=== PATIENT | male | born 1965 | race Caucasian/White ===

== ENCOUNTER 2017-09-05 08:26 | Emergency (ER) | payer BC | END 2017-09-05 09:10 | disposition left against medical advice (07) | LOC: UCCORT 08:26 | DX: M54.9 Dorsalgia, unspecified (principal); Z53.21 Procedure and treatment not carried out due to patient leaving prior to being seen by health care provider ==

== ENCOUNTER 2017-09-06 11:53 | Emergency (ER) | payer BC ==
[2017-09-06 14:16] VITALS: BP 175/113
--- NOTE | 2017-09-06 14:40 | UC ---
Shoulder Pain HPI - HPI Summary HPI Summary: 52 year old male with shoulder pain . He hurt back 6 weeks ago and has chronic back pain and he saw some chiro in the 80s. Patient fell down stairs 2 weeks ago. denies LOC. He sleeps on his stomach and noticed a few days ago he turned and felt pain. Now he has had some spasms. Took ibuprofen and aleve PM yesterday . Declined meds at this time. Denies work injury. Fall at home. No numbness in legs. Low back pain and worsened on the low right and left shoulder . pain . No weakness in the arms or legs. no incontinence. No leg drop. No urinary concerns. No PCP - History of Current Complaint Chief Complaint: UCBackPain Stated Complaint: BACK/LEFT SHLDR PAIN Time Seen by Provider: 09/06/17 14:33 Hx Obtained From: Patient Onset/Duration: Sudden Onset Timing: Intermittent Episode Lasting Pain Intensity: 9 Character: Aching, Stiffness Aggravating Factor(s): Movement, Lifting Alleviating Factor(s): Rest - Allergies/Home Medications Allergies/Adverse Reactions: Allergies Allergy/AdvReac Type Severity Reaction Status Date / Time MS Amikacin [Amikacin] Allergy Intermediate Rash Verified 09/06/17 14:04 MS Fluconazole [Fluconazole] Allergy Intermediate Rash Verified 09/06/17 14:04 MS Levofloxacin Allergy Intermediate Rash Verified 09/06/17 14:04 [From Levaquin] Home Medications: Home Medications Naproxen Sod/Diphenhydramine [Aleve PM 220-25 mg] 2 tab PO BEDTIME PRN 09/06/17 [History Confirmed 09/06/17] PMH/Surg Hx/FS Hx/Imm Hx Previously Healthy: Yes - Surgical History Surgical History: Yes Surgery Procedure, Year, and Place: bone marrow bx's - Family History Known Family History: Positive: Cardiac Disease, Hypertension Negative: Respiratory Disease - Social History Occupation: Employed Full-time - state Alcohol Use: Weekly Alcohol Amount: few times a week Substance Use Type: None Smoking Status (MU): Heavy Every Day Tobacco Smoker Type: Cigarettes Amount Used/How Often: 1/2-3/4 ppd Length of Time of Smoking/Using Tobacco: 37 YRS Household Exposure Type: Cigarettes - Immunization History Most Recent Influenza Vaccination: 8001-2650 Most Recent Tetanus Shot: WITHIN THE LAST 5 YRS Review of Systems Musculoskeletal: Arthralgia, Decreased ROM - left shoulder and low back Is Patient Immunocompromised?: No All Other Systems Reviewed And Are Negative: Yes Physical Exam Triage Information Reviewed: Yes Appearance: Well-Appearing, Well-Nourished, Pain Distress - mild Vital Signs: Initial Vital Signs Temp 98.7 F 09/06/17 14:07 Pulse 76 09/06/17 14:07 Resp 16 09/06/17 14:07 BP 175/113 09/06/17 14:07 Pulse Ox 97 09/06/17 14:07 Vital Signs Reviewed: Yes Eye Exam: Normal ENT Exam: Normal Respiratory Exam: Normal Cardiovascular Exam: Normal Musculoskeletal: Positive: No Edema, Strength Limited @ - left shoulder reduced ROM with forward flexion after 90 deg. lateral flexion to 80 degrees. (+) Neers and Lift off. Low back with paraspinal tenderness diffusely L3-5. No SP tenderness. No step off. No C spine tenderness., Other: - neg SLR. LE strength 5 /5 B/L. Psychological Exam: Normal Skin Exam: Normal Diagnostics - Laboratory Diagnostic Studies Completed/Ordered: IMPRESSION: 1. Negative for fracture or spondylolisthesis. 2. Degenerative spondylosis and facet joint osteoarthritis. Shoulder : no acute concerns Shoulder Course/Dx - Course Course Of Treatment: With sub acute back pain and acute shoulder pain obtained Xray. No red flags on exam. Advised NSAIDs, muscle relaxer prn (do not work or drive if taking) and start PT. If not improved he will follow up with Ortho. His BP very elevated -- advise to f/u with PCP juana for further eval and treatment. The BP could be high due to UC setting and pain. He still needs additional work up . Reviewed x ray with pt -- at this time star [facility] , NSAIDs, prn muscle relaxer and f/u Ortho. No red flags. RTO if any concerns. - Differential Dx/Diagnosis Differential Diagnosis/HQI/PQRI: AC Separation, Arthritis, Fracture (Closed), Rotator Cuff Injury, Sprain, Strain Provider Diagnoses: Left shoulder and low back pain Discharge - Discharge Plan Condition: Good Disposition: HOME Prescriptions: Cyclobenzaprine TAB* [Flexeril 10 MG TAB*] 10 mg PO BID PRN #14 tab PRN Reason: Spasms Patient Education Materials: Rotator Cuff Injury (ED), Low Back Strain (ED), Hypertension (ED) Referrals: Shahzad Cook MD [Medical Doctor] - 1 Week (Ortho referral ) No Primary Care Phys,NOPCP [Primary Care Provider] - 4 Days (Establish care with Primary care doctor to look at your Blood pressure ) Additional Instructions: Please do not take ibuprofen and naproxen (aleve) at the same time and preferably not in the same day. Do not work or drive while on the flexeril or any muscle relaxer
--- NOTE | 2017-09-06 15:24 | RAD ---
HISTORY: Left shoulder pain COMPARISONS: None VIEWS: 3, Frontal internal rotation, external rotation, and outlet views of the left shoulder FINDINGS: BONE DENSITY: Normal. BONES: There is no displaced fracture. JOINTS: There is moderate osteoarthritis of the left AC and glenohumeral joints. ALIGNMENT: There is no dislocation. SOFT TISSUES: Unremarkable. OTHER FINDINGS: None. IMPRESSION: OSTEOARTHRITIS. NO ACUTE OSSEOUS INJURY. IF SYMPTOMS PERSIST, RECOMMEND REPEAT IMAGING.
--- NOTE | 2017-09-06 15:45 | RAD ---
Indication: Bilateral low back pain. Fall 2 months ago. Comparison: No relevant prior exams available on the [facility] PACS for comparison. Technique: Upright AP, lateral, and oblique views lumbar sacral spine. Report: Transitional segment at the lumbar sacral junction with lumbarization of S1. Alignment is anatomic. No cortical disruption or trabecular impaction to indicate a vertebral body fracture. Oblique views without evidence for spondylolysis. Multilevel predominant mild vertebral and endplate osteophytosis with more prominent RIGHT lateral osteophytes at the L1-L2 level. . Diffuse mild to moderate disc space narrowing with sparing of the L4-L5 level. Mild facet joint osteoarthritis throughout. Unremarkable soft tissue contours. Atherosclerotic calcification of the abdominal aorta. IMPRESSION: 1. Negative for fracture or spondylolisthesis. 2. Degenerative spondylosis and facet joint osteoarthritis.
== END 2017-09-06 15:48 | disposition home or self-care (01) ==
LOC: UCCORT 11:53
DX: M25.512 Pain in left shoulder (principal); M54.5 Low back pain
CPT/HCPCS: 72110; 99212; G0463

== ENCOUNTER 2017-11-26 09:48 | Emergency (ER) | payer BC ==
[2017-11-26 10:29] VITALS: BP 184/108
--- NOTE | 2017-11-26 10:55 | UC ---
Skin Complaint HPI - HPI Summary HPI Summary: pt noted a black spot in his belly button-thinks it may be a tick because it itches. no fever or rash. also, BP elevated at triage, denies hx htn. no GALEANA, cp , sob. - History of Current Complaint Chief Complaint: UCSkin Time Seen by Provider: 11/26/17 10:48 Stated Complaint: SKIN COMPLAINT Hx Obtained From: Patient Pain Intensity: 0 Aggravating Factor(s): Nothing Alleviating Factor(s): Nothing Associated Signs & Symptoms: Negative: Chest Pain - Allergy/Home Medications Allergies/Adverse Reactions: Allergies Allergy/AdvReac Type Severity Reaction Status Date / Time amikacin Allergy Rash Verified 11/26/17 10:20 fluconazole Allergy Rash Verified 11/26/17 10:20 levofloxacin Allergy Rash Verified 11/26/17 10:20 Review of Systems Constitutional: Negative Skin: Other - ? tick belly button Eyes: Negative ENT: Negative Respiratory: Negative Cardiovascular: Negative Gastrointestinal: Negative Genitourinary: Negative Motor: Negative Neurovascular: Negative Musculoskeletal: Negative Neurological: Negative Psychological: Negative Is Patient Immunocompromised?: No All Other Systems Reviewed And Are Negative: Yes PMH/Surg Hx/FS Hx/Imm Hx - Additional Past Medical History Additional PMH: leukemia - remission over 5 years - Surgical History Surgical History: Yes Surgery Procedure, Year, and Place: bone marrow bx's - Family History Known Family History: Positive: Cardiac Disease, Hypertension, Renal Disease Negative: Respiratory Disease - Social History Occupation: Employed Full-time Lives: With Family Alcohol Use: Weekly Alcohol Amount: few times a week Substance Use Type: None Smoking Status (MU): Heavy Every Day Tobacco Smoker Type: Cigarettes Amount Used/How Often: 1/2-3/4 ppd Length of Time of Smoking/Using Tobacco: 37 YRS Household Exposure Type: Cigarettes - Immunization History Most Recent Influenza Vaccination: 2106-7504 Most Recent Tetanus Shot: WITHIN THE LAST 5 YRS Vaccination Up to Date: Yes Physical Exam Triage Information Reviewed: Yes Appearance: Well-Appearing Vital Signs: Initial Vital Signs Temp 99.0 F 11/26/17 10:19 Pulse 53 11/26/17 10:19 Resp 19 11/26/17 10:19 BP 184/108 11/26/17 10:19 Pulse Ox 99 11/26/17 10:19 Vital Signs Reviewed: Yes Eyes: Positive: Conjunctiva Clear ENT: Positive: Normal ENT inspection Neck: Positive: Supple, Nontender, No Lymphadenopathy Respiratory: Positive: Lungs clear, Normal breath sounds Cardiovascular: Positive: RRR, No Murmur Abdomen Description: Positive: Nontender, No Organomegaly, Soft Bowel Sounds: Positive: Present Musculoskeletal: Positive: ROM Intact Neurological: Positive: Alert Psychological: Positive: Age Appropriate Behavior Skin Exam: Normal, Other - umbilical tick Course/Dx - Course Course Of Treatment: Procedure=tick removed with twister whole. site cleaned and bacitracin applied. repeat BP 190/90. no s/s's. no hypertensive emergency. called [facility] where pt trying to get a pcp. gave pt info. awaiting to see if they will accept the pt. attempted to speak with Oliva colón whom he request; however, after several minutes of waiting no call back. BP d/w Dr Rivera. since no baseline labs, he suggest pt go to ER. pt declined ER transfer. states will leave here and go to [facility], [facility] Ramirez to get a pcp. need for f/u stresses due to htn. pt agrees to go to er for any changes such as cp, sob, galeana. states last saw oncology about 3 years ago since in remission. i advised he should f/u with them as well. - Diagnoses Provider Diagnoses: Tick removed- umbilical. hypertension Discharge - Sign-Out/Discharge Documenting (check all that apply): Discharge/Admit/Transfer - Discharge Plan Condition: Stable Disposition: HOME Prescriptions: DOXYcycline CAP(*) [DOXYcycline 100MG CAP(*)] 200 mg PO DAILY #2 cap Patient Education Materials: Tick Bite (ED), Hypertension (ED) Referrals: Suman Jansen DO [Doctor of Osteopathy] - As Soon As Possible Additional Instructions: FOLLOW UP WITH [facility] UPON LEAVING HERE. YOU MAY ASK FOR WHOM EVER YOU PREFER([facility]) - Billing Disposition and Condition Condition: STABLE Disposition: HOME
== END 2017-11-26 11:58 | disposition home or self-care (01) ==
LOC: UCCORT 09:48
DX: S30.861A Insect bite (nonvenomous) of abdominal wall, initial encounter (principal); W57.XXXA Bitten or stung by nonvenomous insect and other nonvenomous arthropods, initial encounter; Y93.9 Activity, unspecified; Y92.9 Unspecified place or not applicable; I10 Essential (primary) hypertension; Z88.1 Allergy status to other antibiotic agents; Z88.8 Allergy status to other drugs, medicaments and biological substances; F17.210 Nicotine dependence, cigarettes, uncomplicated
CPT/HCPCS: 99211; G0463

== ENCOUNTER 2018-07-10 17:52 | Emergency (ER) | payer BC ==
[2018-07-10 18:04] VITALS: BP 186/120
--- NOTE | 2018-07-10 18:10 | UC ---
Eye Complaint HPI - HPI Summary HPI Summary: Pt c/o sudden onset bilateral eye redness, mild swelling and yellow discharge x 2 days. - History of Current Complaint Chief Complaint: UCEye Stated Complaint: B/L EYE COMPLAINT Time Seen by Provider: 07/10/18 18:06 Hx Obtained From: Patient Onset/Duration: Sudden Onset, Lasting Days, Still Present Timing: Constant Severity Initially: Mild Severity Currently: Mild Pain Intensity: 4 Character: Dull, Foreign Body Sensation Associated Signs And Symptoms: Positive: Drainage (Purulent) - Risk Factors Penetrating Injury Risk Factor: Negative Globe Rupture Risk Factors: Negative Acute Glaucoma Risk Factors: Negative Optic Artery Occlusion Risk Factors: Negative - Allergies/Home Medications Allergies/Adverse Reactions: Allergies Allergy/AdvReac Type Severity Reaction Status Date / Time amikacin Allergy Rash Verified 07/10/18 18:05 fluconazole Allergy Rash Verified 07/10/18 18:05 levofloxacin Allergy Rash Verified 07/10/18 18:05 PMH/Surg Hx/FS Hx/Imm Hx Previously Healthy: Yes Cardiovascular History: Hypertension - untreated Cancer History: Other - cancer - Surgical History Surgical History: Yes Surgery Procedure, Year, and Place: bone marrow bx's - Family History Known Family History: Positive: Cardiac Disease, Hypertension, Renal Disease Negative: Respiratory Disease - Social History Occupation: Unemployed - laid off currently Lives: With Family Alcohol Use: Weekly Alcohol Amount: few times a week Substance Use Type: None Smoking Status (MU): Heavy Every Day Tobacco Smoker Type: Cigarettes Amount Used/How Often: 1/2-3/4 ppd Length of Time of Smoking/Using Tobacco: 37 YRS Have You Smoked in the Last Year: Yes Household Exposure Type: Cigarettes - Immunization History Most Recent Influenza Vaccination: 8116-0704 Most Recent Tetanus Shot: WITHIN THE LAST 5 YRS Vaccination Up to Date: Yes Review of Systems All Other Systems Reviewed And Are Negative: Yes Constitutional: Positive: Negative Skin: Positive: Negative Eyes: Positive: Drainage, Eye Redness ENT: Positive: Negative Respiratory: Positive: Negative Cardiovascular: Positive: Negative Gastrointestinal: Positive: Negative Genitourinary: Positive: Negative Motor: Positive: Negative Neurovascular: Positive: Negative Musculoskeletal: Positive: Negative Neurological: Positive: Negative Psychological: Positive: Negative Is Patient Immunocompromised?: No Physical Exam Triage Information Reviewed: Yes Appearance: Well-Appearing Vital Signs: Initial Vital Signs Temp 99.2 F 07/10/18 18:00 Pulse 108 07/10/18 18:00 Resp 18 07/10/18 18:00 BP 186/120 07/10/18 18:00 Pulse Ox 95 07/10/18 18:00 Vital Signs Reviewed: Yes Eyes: Positive: Conjunctiva Inflamed, Discharge, Other: - lower eye lid swelling ENT: Positive: Hearing grossly normal Dental Exam: Normal Neck exam: Normal Respiratory: Positive: No respiratory distress Musculoskeletal Exam: Normal Neurological Exam: Normal Psychological Exam: Normal Skin Exam: Normal Eye Complaint Course/Dx - Course Course Of Treatment: I discussed with the pt the need to seek care regarding his elevated BP. Pt verbalized understanding and agreed to plan of care. - Differential Dx/Diagnosis Differential Diagnosis/HQI/PQRI: Conjunctivitis Provider Diagnosis: Bilateral conjunctivitis, High blood pressure Discharge - Sign-Out/Discharge Documenting (check all that apply): Patient Departure All imaging exams completed and their final reports reviewed: No Studies - Discharge Plan Condition: Stable Disposition: HOME Prescriptions: Polymyx/Trimethoprim OPTH* [Polytrim OPHTH*] 2 drop BOTH EYES Q8H 7 Days #1 btl Patient Education Materials: Low-Sodium Diet (ED), Hypertension (ED), Conjunctivitis (ED) Referrals: No Primary Care Phys,NOPCP [Primary Care Provider] - Anushka Hernandez MD [Medical Doctor] - As Soon As Possible Additional Instructions: PLEASE NOTE THAT YOURBLOOD PRESSURE AT TODAY'S VISIT IS ELEVATED. YOU NEED TO FOLLOW UP WITH A PCP SOON POSSIBLE. - Billing Disposition and Condition Condition: STABLE Disposition: Home
== END 2018-07-10 18:20 | disposition home or self-care (01) ==
LOC: UCCORT 17:52
DX: H10.9 Unspecified conjunctivitis (principal); I10 Essential (primary) hypertension; Z88.1 Allergy status to other antibiotic agents; Z88.3 Allergy status to other anti-infective agents; Z85.9 Personal history of malignant neoplasm, unspecified; F17.210 Nicotine dependence, cigarettes, uncomplicated
CPT/HCPCS: 99212; G0463